=== PATIENT | female | born 1985 | race Asian ===

== ENCOUNTER 2018-01-11 10:20 | Emergency (ER) | payer MEDICAID ==
[~2018-01-11] VITALS: Ht 162.6 cm; Wt 49.9 kg
[2018-01-11 10:25] VITALS: Ht 162.6 cm; Wt 49.9 kg
[2018-01-11 11:17] VITALS: BP 115/81
== END 2018-01-11 11:17 | disposition home or self-care (01) ==
LOC: ED 10:20
DX: R07.89 Other chest pain (principal)
CPT/HCPCS: Q0092